=== PATIENT | female | born 1985 | race Hispanic/Latino ===

== ENCOUNTER 2018-10-05 11:30 | Emergency (ER) | payer SELFPAY ==
--- NOTE | 2018-10-05 11:39 | Emergency Department Report ---
Blank Doc - Documentation Documentation: This is a 33-year-old female that presents with chest pain and SOB. Denies any radiation of pain. This initial assessment/diagnostic orders/clinical plan/treatment(s) is/are subject to change based on patient's health status, clinical progression and re- assessment by fellow clinical providers in the ED. Further treatment and workup at subsequent clinical providers discretion. Patient/guardians urged not to elope from the ED as their condition may be serious if not clinically assessed and managed. Initial orders include: 1- Patient sent to [facility] for further evaluation and treatment 2- EKG 3- CXR 4- labs
[2018-10-05 11:41] VITALS: BP 143/95
== END 2018-10-05 12:11 | disposition left against medical advice (07) ==
LOC: ED 11:30
DX: R07.89 Other chest pain (principal); Z53.21 Procedure and treatment not carried out due to patient leaving prior to being seen by health care provider
CPT/HCPCS: 93005; 93010

== ENCOUNTER 2021-08-15 06:55 | Emergency (ER) | payer MEDICAID ==
[2021-08-15] MEDS ORDERED: dexAMETHasone 20 MG/5 ML VIAL IV ONE (07:53)
[2021-08-15] MEDS ORDERED: FAMOTIDINE 20 MG/2 ML INJ IV ONE (07:53)
--- NOTE | 2021-08-15 07:54 | Emergency Department Report ---
ED Allergic Reaction HPI - General Chief complaint: Allergic Reaction Stated complaint: CHEST PAIN/ALLERGIC REACTION Time Seen by Provider: 08/15/21 07:53 Source: patient Mode of arrival: Ambulatory Limitations: No Limitations - History of Present Illness Initial Comments: 36-year-old female presents to the ER today with concern for possible allergic reaction. Patient states that the middle of the night she woke up feeling like her throat was swollen and closing. She states that yesterday her throat was sore, but this has since resolved and now just feels like it swollen. She denies any associated itching, rash or any other areas of swelling but she states that she did break out into a "cold sweat" when she woke up feeling like her throat was closing this morning. She states that she took Benadryl as well as DayQuil after which she has noticed some mild decrease in the swelling sensation in her throat. She denies any known triggers. She reports no associated URI symptoms, chest pain or shortness of breath. She denies any apparent ill contacts or recent travel. She does admit that she has had a mild case in the past but never had it checked out. MD Complaint: allergic reaction, other (Throat swelling) -: Sudden, During the night - Related Data Previous Rx's Medication Instructions Recorded Last Taken Type Cetirizine HCl [Zyrtec 10mg tab] 10 mg PO DAILY #30 08/15/21 Unknown Rx Famotidine [Pepcid] 20 mg PO BID #10 tablet 08/15/21 Unknown Rx methylPREDNISolone [Medrol 4MG 4 mg PO DAILY #1 pack 08/15/21 Unknown Rx DOSEPAK (21 tabs)] Allergies Allergy/AdvReac Type Severity Reaction Status Date / Time No Known Allergies Allergy Unverified 06/25/13 09:09 ED Review of Systems ROS: Stated complaint: CHEST PAIN/ALLERGIC REACTION Other details as noted in HPI Comment: All other systems reviewed and negative ENT: throat pain, other (Throat swelling) Respiratory: denies: cough, shortness of breath, SOB with exertion, SOB at rest, wheezing Cardiovascular: denies: chest pain, palpitations, edema, syncope, paroxysmal nocturnal dyspnea Endocrine: no symptoms reported Gastrointestinal: denies: abdominal pain, nausea, diarrhea, constipation, hematemesis, hematochezia Genitourinary: denies: urgency, dysuria, frequency, hematuria, discharge, abnormal menses, dyspareunia Musculoskeletal: denies: back pain, joint swelling, arthralgia Skin: denies: rash, lesions, change in color, change in hair/nails, pruritus, other Neurological: denies: headache, weakness, numbness, paresthesias, confusion, abnormal gait, vertigo Psychiatric: denies: anxiety, depression, auditory hallucinations, visual hallucinations, homicidal thoughts, suicidal thoughts Hematological/Lymphatic: denies: easy bleeding, easy bruising, swollen glands ED Past Medical Hx - Past Medical History Additional medical history: bronchitis - Social History Smoking Status: Current Every Day Smoker Substance Use Type: Methamphetamines - Medications Home Medications: Home Medications Medication Instructions Recorded Confirmed Last Taken Type Cetirizine HCl [Zyrtec 10mg tab] 10 mg PO DAILY #30 08/15/21 Unknown Rx Famotidine [Pepcid] 20 mg PO BID #10 tablet 08/15/21 Unknown Rx methylPREDNISolone [Medrol 4MG 4 mg PO DAILY #1 pack 08/15/21 Unknown Rx DOSEPAK (21 tabs)] ED Physical Exam - General Limitations: No Limitations General appearance: alert, in no apparent distress, anxious - Head Head exam: Present: atraumatic, normocephalic, normal inspection - Eye Eye exam: Present: normal appearance, PERRL, EOMI Pupils: Present: normal accommodation - ENT ENT exam: Present: mucous membranes moist - Expanded ENT Exam Expanded Throat exam: Positive: tonsillar erythema (Mild), tonsillomegaly (Mild swelling to bilateral tonsils), other (Mild swelling to the uvula with erythema but no deviation). Negative: tonsillar exudate, R peritonsillar mass, L peritonsillar mass - Neck Neck exam: Present: normal inspection, full ROM. Absent: meningismus - Respiratory Respiratory exam: Present: normal lung sounds bilaterally. Absent: respiratory distress, wheezes, rales, rhonchi, stridor - Cardiovascular Cardiovascular Exam: Present: regular rate, normal rhythm, normal heart sounds - Extremities Exam Extremities exam: Present: normal inspection, full ROM - Neurological Exam Neurological exam: Present: alert, oriented X3, CN II-XII intact, normal gait - Psychiatric Psychiatric exam: Present: normal affect, normal mood - Skin Skin exam: Present: intact. Absent: rash ED Course Vital Signs 03/08/15/21 08/15/21 06:58 07:33 08:15 Temperature 98.9 F 98.4 F Pulse Rate 111 H 113 H 88 Respiratory 16 16 16 Rate Blood Pressure 156/109 Blood Pressure 172/104 113/84 [Left] O2 Sat by Pulse 97 97 100 Oximetry ED Medical Decision Making - Medical Decision Making 36-year-old female presents to the ER today with concern for possible allergic reaction. Patient states that the middle of the night she woke up feeling like her throat was swollen and closing. She states that yesterday her throat was sore, but this has since resolved and now just feels like it swollen. She denies any associated itching, rash or any other areas of swelling but she states that she did break out into a "cold sweat" when she woke up feeling like her throat was closing this morning. She states that she took Benadryl as well as DayQuil after which she has noticed some mild decrease in the swelling sensation in her throat. She denies any known triggers. She reports no associated URI symptoms, chest pain or shortness of breath. She denies any apparent ill contacts or recent travel. She does admit that she has had a mild case in the past but never had it checked out. Patient appears mildly anxious but overall she is not toxic or ill-appearing and not in any significant distress. She is controlling her secretions well. Her airway appears to be intact. She has no trismus. No tracheal deviation. She has no stridor and her chest is clear to auscultation. She is neurologically intact and her gait is normal. Repeat VS stable. Patient will be treated for possible allergic reaction with steroids and antihistamines. Informed her that she should follow-up with primary care doctor for referral to high density finishing operator since this is a second time this is happening to her. There is no indication for any work-up or antibiotics at this time. Patient expressed understanding and agree with plan. Patient stable at time of discharge. Critical care attestation.: If time is entered above; I have spent that time in minutes in the direct care of this critically ill patient, excluding procedure time. ED Disposition Clinical Impression: Allergic reaction, Tonsillitis Disposition: HOME / SELF CARE / HOMELESS Is pt being admited?: No Does the pt Need Aspirin: No Condition: Stable Instructions: Tonsillitis, [id number], Allergies, Adult Additional Instructions: Take the Medrol Dosepak and the Pepcid and take the Zyrtec as prescribed. I do recommend that you follow-up with primary care doctor listed on discharge instructions for referral to high density finishing operator and ENT becomes a recurrent problem. Return to ER symptoms changes or worsens in any way. Prescriptions: methylPREDNISolone [Medrol 4MG DOSEPAK (21 tabs)] 4 mg PO DAILY #1 pack Famotidine [Pepcid] 20 mg PO BID #10 tablet Cetirizine HCl [Zyrtec 10mg tab] 10 mg PO DAILY #30 Referrals: SWETA CEBALLOS MD [Staff Physician] - 3-5 Days Time of Disposition: 08:09
[2021-08-15 08:19] VITALS: BP 113/84
== END 2021-08-15 08:15 | disposition home or self-care (01) ==
LOC: ED 06:55
DX: T78.40XA Allergy, unspecified, initial encounter (principal); X58.XXXA Exposure to other specified factors, initial encounter; J03.90 Acute tonsillitis, unspecified; F17.200 Nicotine dependence, unspecified, uncomplicated
CPT/HCPCS: 99282; J1100; J3490

== ENCOUNTER 2021-09-03 15:14 | Emergency (ER) | payer SELFPAY ==
[2021-09-03 15:23] VITALS: BP 150/105
--- NOTE | 2021-09-03 16:04 | Emergency Department Report ---
HPI - General Chief Complaint: Allergic Reaction Time Seen by Provider: 09/03/21 15:54 ED Past Medical Hx - Past Medical History Additional medical history: bronchitis - Social History Smoking Status: Current Every Day Smoker Substance Use Type: Methamphetamines - Medications Home Medications: Home Medications Medication Instructions Recorded Confirmed Last Taken Type Cetirizine HCl [Zyrtec 10mg tab] 10 mg PO DAILY #30 08/15/21 Unknown Rx Famotidine [Pepcid] 20 mg PO BID #10 tablet 08/15/21 Unknown Rx methylPREDNISolone [Medrol 4MG 4 mg PO DAILY #1 pack 08/15/21 Unknown Rx DOSEPAK (21 tabs)] ED Review of Systems ROS: Stated complaint: ALLERGIC REACTION/THROAT Other details as noted in HPI Constitutional: no symptoms reported Respiratory: denies: shortness of breath, SOB at rest, stridor, wheezing Cardiovascular: denies: chest pain, palpitations Gastrointestinal: denies: abdominal pain, nausea, vomiting Skin: rash Neurological: denies: headache, weakness Psychiatric: denies: anxiety, depression Physical Exam - Physical Exam Vital Signs: Vital Signs 09/03/21 15:21 Temperature 98.1 F Pulse Rate 116 H Respiratory 18 Rate Blood Pressure 150/105 [Right] O2 Sat by Pulse 100 Oximetry ED Course Vital Signs 09/03/21 15:21 Temperature 98.1 F Pulse Rate 116 H Respiratory 18 Rate Blood Pressure 150/105 [Right] O2 Sat by Pulse 100 Oximetry ED Medical Decision Making - Medical Decision Making Patient eloped prior to administration of medications. Critical care attestation.: If time is entered above; I have spent that time in minutes in the direct care of this critically ill patient, excluding procedure time. ED Disposition Clinical Impression: Allergic reaction Disposition: 07 LEFT AWOL/ELOPED Is pt being admited?: No Does the pt Need Aspirin: No Condition: Stable Instructions: Allergies, Adult, [id number] Time of Disposition: 17:40 Print Language: TAMAZIGHT ED Allergic Reaction HPI - General Chief complaint: Allergic Reaction Stated complaint: ALLERGIC REACTION/THROAT Time Seen by Provider: 09/03/21 15:54 Source: patient Mode of arrival: Ambulatory Limitations: No Limitations - History of Present Illness MD Complaint: allergic reaction, other (Sensation of throat closing) -: days(s) (Yesterday) Exposure: unknown Symptoms: rash, itching, orolingual swelling, other (Sensation of throat clos ing/oral swelling). denies: difficulty breathing Severity: mild Treatment Prior to Arrival: benadryl Previous Allergy History: other (Patient reports similar episode in the past) - Related Data Previous Rx's Medication Instructions Recorded Last Taken Type Cetirizine HCl [Zyrtec 10mg tab] 10 mg PO DAILY #30 08/15/21 Unknown Rx Famotidine [Pepcid] 20 mg PO BID #10 tablet 08/15/21 Unknown Rx methylPREDNISolone [Medrol 4MG 4 mg PO DAILY #1 pack 08/15/21 Unknown Rx DOSEPAK (21 tabs)] Allergies Allergy/AdvReac Type Severity Reaction Status Date / Time No Known Allergies Allergy Unverified 06/25/13 09:09 ED General adult EXAM - General General appearance: alert, in no apparent distress Limitations: No Limitations - Head Head exam: Positive: atraumatic, normocephalic - Eye Eye exam: normal appearance - Respiratory Respiratory exam: Positive: normal lung sounds bilaterally. Negative: respiratory distress, wheezes - Cardiovascular Cardiovascular Exam: Positive: regular rate, normal rhythm, normal heart sounds - GI/Abdominal GI/Abdominal exam: Positive: soft. Negative: distended, tenderness - Rectal Rectal exam: Positive: deferred - exam: Positive: deferred - Neurological Neurological exam: Positive: alert, oriented X3, CN II-XII intact - Psychiatric Psychiatric exam: Positive: normal affect, normal mood - Skin Skin exam: Positive: warm, dry, intact, urticaria (Urticaria to both arms)
[2021-09-03] MEDS ORDERED: methylPREDNISolone Sod Succinate 125 MG/2 ML INJ IM ONE (16:07)
[2021-09-03] MEDS ORDERED: FAMOTIDINE 20 MG TAB PO ONE (16:07)
== END 2021-09-03 17:51 | disposition left against medical advice (07) ==
LOC: ED 15:14
DX: T78.40XA Allergy, unspecified, initial encounter (principal); F17.200 Nicotine dependence, unspecified, uncomplicated; X58.XXXA Exposure to other specified factors, initial encounter
CPT/HCPCS: 99281; J2930